=== PATIENT | female | born 2005 | race African-American/Black ===

== ENCOUNTER 2024-02-24 04:03 | Emergency (ER) | payer OTHER ==
[~2024-02-24] VITALS: Ht 165.1 cm; Wt 53.0 kg
[2024-02-24 04:17] VITALS: BP 132/83; PULSE 61; RESP 16; TEMP 98.1; O2SAT 98
== END 2024-02-24 05:44 | disposition home or self-care (01) ==
LOC: ER 04:03
DX: T19.2XXA Foreign body in vulva and vagina, initial encounter (principal); W44.8XXA Other foreign body entering into or through a natural orifice, initial encounter

== ENCOUNTER 2025-03-27 16:45 | Observation (INO) | payer MEDICAID ==
[2025-03-27] MEDS ORDERED: PREN-96 PO (17:06)
--- NOTE | 2025-03-27 17:58 | DVH ---
BIOPHYSICAL PROFILE HISTORY: Decrease Movement Comparison Study: None TECHNIQUE: Multiple real-time grayscale sonographic images through the gravid uterus of the fetus wi th duplex Doppler color flow and M-mode spectral analysis FINDINGS: BIOPHYSICAL PROFILE: breathing score: 2 movement score: 2 tone score: 2 Quantitative EMELINA score: 2 (EMELINA: 15.3 Cm.) Total score: 8, normal Single live fetus in cephalic presentation. heart rate 140 beats per minute. Unremarkable placenta without previa or abruption IMPRESSION: 1. Biophysical profile score: 8/8, normal 2. No acute findings identified.
--- NOTE | 2025-03-28 08:36 | DVHDS2 ---
Physician Discharge Progress N Final Diagnosis: DEC MOVEMENT 35wks Operations or Procedures: Operations or Procedures NST REACTIVE REVIWED,SONO Condition on Discharge: Good Disposition: Home Discharge Instructions: Diet: Regular Activity: No Restrictions, As Tolerated Medications: Na Follow Up Care: Specialist: 1w Discharge Statement: "Patient was advised to return to the ER or call 911 if any headaches, dizziness, shortness of breath, chest pain, abdominal pain, bleeding, fevers, or worsening of medical condition. Patient was counseled about treatment plan, medications, possible side effects, patientverbalized understanding. All questions were answered to the best of my ability. This discharge took greater then 30 minutes in planning, reviewing documentation, counseling the patient, and discussing with other team members." Visit Coding OBGYN Date of Service: Mar 27, 2025 Billing Provider: SHINE CELIS DO SUPERVISOR LOC[employer] Common Visit Codes: [id number] OBS CARE (HIGH) SUPERVISOR LOC[employer] Procedure Codes: 05646-62- NON-STRESS TEST SHINE CELIS DO Mar 28, 2025 08:36
== END 2025-03-27 18:08 | disposition home or self-care (01) ==
LOC: LDRP 16:45
PROVIDERS: ADMIT Obstetrics & Gynecology; ATTEND Obstetrics & Gynecology
DX: O36.8130 Decreased fetal movements, third trimester, not applicable or unspecified (principal); Z3A.35 35 weeks gestation of pregnancy; Z79.899 Other long term (current) drug therapy
CPT/HCPCS: 59025; 76819; 81002; G0378